=== PATIENT | female | born 1965 | race African-American/Black ===

== ENCOUNTER 2018-04-21 15:44 | Outpatient (CLI) | payer OTHER | END 2018-04-21 15:45 | disposition home or self-care (01) | LOC: BICMAMMO 15:44 | PROVIDERS: ATTEND Family Medicine | DX: Z12.31 Encounter for screening mammogram for malignant neoplasm of breast (principal); Z80.3 Family history of malignant neoplasm of breast | CPT/HCPCS: 77063; 77067 ==

== ENCOUNTER 2019-08-22 19:30 | Outpatient (CLI) | payer OTHER | END 2019-08-22 19:31 | disposition home or self-care (01) | LOC: SLEEPLAB 19:30 | PROVIDERS: ATTEND Family Medicine | DX: G47.33 Obstructive sleep apnea (adult) (pediatric) (principal); R06.83 Snoring; G47.00 Insomnia, unspecified; G47.10 Hypersomnia, unspecified; R46.0 Very low level of personal hygiene | CPT/HCPCS: 95810 ==

== ENCOUNTER 2020-02-21 10:39 | Outpatient (CLI) | payer OTHER ==
--- NOTE | 2020-02-21 11:29 | MMO ---
Bilateral MAMMO Bilat Screen [facility]. CLINICAL HISTORY: Patient is 54 years old and is seen for screening. The patient has no family history of breast cancer. The patient has no personal history of cancer. VIEWS: The views performed were: bilateral craniocaudal with tomosynthesis and bilateral mediolateral oblique with tomosynthesis. FILMS COMPARED: The present examination has been compared to prior imaging studies performed at [facility] on 02/13/2017 and 04/21/2018, and at [facility] on 11/11/2011 and 08/23/2014. This study has been interpreted with the assistance of computer-aided detection. MAMMOGRAM FINDINGS: There are scattered fibroglandular densities. There are nodules seen in both breasts. This has increased in size from the prior exam. Overall benign features. IMPRESSION: NODULES IN BOTH BREASTS REQUIRE ADDITIONAL EVALUATION. AN ULTRASOUND EXAM IS RECOMMENDED IF NEEDED. ADDITIONAL IMAGING. THE RESULTS OF THIS EXAM WERE SENT TO THE PATIENT. ACR BI-RADS Category 0 - Incomplete: Need additional imaging evaluation. [facility] [place] will notify the patient of the need for additional imaging services. MAMMOGRAPHY NOTE: 1. A negative mammogram report should not delay a biopsy if a dominant of clinically suspicious mass is present. 2. Approximately 10% to 15% of breast cancers are not detected by mammography. 3. Adenosis and dense breasts may obscure an underlying neoplasm. Reported by: ANDERSON SAENZ MD Electonically Signed: [id number]
== END 2020-02-21 10:40 | disposition home or self-care (01) ==
LOC: BICMAMMO 10:39
PROVIDERS: ATTEND Family Medicine
DX: Z12.31 Encounter for screening mammogram for malignant neoplasm of breast (principal); N63.20 Unspecified lump in the left breast, unspecified quadrant; N63.10 Unspecified lump in the right breast, unspecified quadrant
CPT/HCPCS: 77063; 77067

== ENCOUNTER 2020-02-24 10:48 | Outpatient (CLI) | payer OTHER ==
--- NOTE | 2020-02-24 13:06 | MMO ---
Bilateral MAMMO Bilat Diag [facility]. CLINICAL HISTORY: Patient is 54 years old and is seen for additional evaluation requested from prior study. The patient has no family history of breast cancer. The patient has no personal history of cancer. VIEWS: The views performed were: bilateral craniocaudal spot compression with tomosynthesis; bilateral mediolateral oblique spot compression with tomosynthesis; and bilateral mediolateral with tomosynthesis. FILMS COMPARED: The present examination has been compared to prior imaging studies performed at [facility] on 04/21/2018, 02/21/2020 and 02/24/2020. This study has been interpreted with the assistance of computer-aided detection. MAMMOGRAM FINDINGS: There are scattered fibroglandular densities. The cluster of nodular densities on the right laterally persist and appear to represent benign nodes on mammography and focused ultrasound. The density on the left persists as well. Imaging demonstrates an oval mass that likely represents a cyst or small fibroadenoma sonographically. This is a probably benign lesion for which 6 month follow up left ultrasound is advised. In the right breast, there are no suspicious masses, calcifications or areas of architectural distortion. IMPRESSION: FINDING IN THE LEFT BREAST IS PROBABLY BENIGN. FOLLOW-UP IN 6 MONTHS IS RECOMMENDED. THE RESULTS OF THIS EXAM WERE SENT TO THE PATIENT. ACR BI-RADS Category 3 - Probably benign finding - short interval follow-up suggested. [facility] will notify the patient of the need for additional imaging services. MAMMOGRAPHY NOTE: 1. A negative mammogram report should not delay a biopsy if a dominant of clinically suspicious mass is present. 2. Approximately 10% to 15% of breast cancers are not detected by mammography. 3. Adenosis and dense breasts may obscure an underlying neoplasm. Reported by: TIFF MACIEL MD Electonically Signed: [id number]
--- NOTE | 2020-02-24 14:32 | ULT ---
BILATERAL BREAST ULTRASOUND: 02/24/20 HISTORY: Bilateral breast nodules. FINDINGS: Focused ultrasound of the right breast at the 9 o'clock and 10 o'clock position demonstrate numerous hypoechoic lesions demonstrating configuration consistent with benign intramammary lymph nodes. On ma mmography, these findings also are consistent with lymph nodes. No concerning findings seen on the ri ght. On the left, centrally there is a 9 mm oval hypoechoic lesion approximately 6 cm from the nipple whic h appears to correlate in size and location with the mammographic findings. This has no internal bloo d flow or abnormal shadowing. It likely represents a cyst but increased through transmission could no t be demonstrated and thus, this could represent a small solid lesion. As a conservative measure, a f ollow-up ultrasound of the left breast is advised in six months. IMPRESSION: BIRADS 3: Probably Benign Finding Initial Short-Interval Follow-Up Suggested Initial short-term follow up (usually 6-month) examination. Findings on the right suggest numerous be nign appearing intramammary nodes. The finding on the left is probably benign and likely represents a small cyst, but a solid lesion is a possibility. Thus, a follow-up focused ultrasound of the left br east to re-evaluate this lesion is advised in six months. Results and recommendation for follow-up imaging in six months discussed with the patient at the time of interpretation.
== END 2020-02-24 10:49 | disposition home or self-care (01) ==
LOC: BICULT 10:48
PROVIDERS: ATTEND Family Medicine
DX: N63.10 Unspecified lump in the right breast, unspecified quadrant (principal); N63.20 Unspecified lump in the left breast, unspecified quadrant
CPT/HCPCS: 77066; G0279

== ENCOUNTER 2020-08-21 14:51 | Outpatient (CLI) | payer OTHER ==
--- NOTE | 2020-08-21 15:45 | ULT ---
LEFT BREAST ULTRASOUND: HISTORY: Six-month followup left breast mass. FINDINGS: Comparison is made with the exam of 02/24/2020. Sonographic evaluation of the central portion of the left breast demonstrates a 9 x 4 x 5 mm cyst sim ilar to that seen on the exam of 02/24/2020. IMPRESSION: BIRADS category 2 - benign findings. Return to annual mammographic screening. POS: OFF
== END 2020-08-21 14:52 | disposition home or self-care (01) ==
LOC: BICMAMMO 14:51
PROVIDERS: ATTEND Family Medicine
DX: N63.20 Unspecified lump in the left breast, unspecified quadrant (principal)

== ENCOUNTER 2021-08-31 14:53 | Outpatient (CLI) | payer OTHER ==
[2021-08-31 16:46] LABS: #Monocytes 0.4 10x3/uL (0.0-1.1); #Neutrophils 2.8 10x3/uL (1.5-8.4); %Basophils 0.5 % (0.0-2.0); %Eosinophils 0.3 % (0.0-6.0); %Lymphocytes 51.8 % (18.0-47.0); %Monocytes 5.5 % (0.0-10.0); %Neutrophils 41.7 % (40.0-75.0); Hemoglobin 11.9 g/dL (12.0-15.5); Mean Corpuscular HGB CONC 32.1 g/dL (32.0-36.0); Mean Corpuscular Hemoglobin 27.3 pg (27.0-33.0); Mean Corpuscular Volume 85.1 fl (81.6-98.3); Mean Platelet Volume 10.7 fl (7.4-10.4); Platelet Count 290 10x3/uL (150-450); RBC Distribution Width 13.3 % (11.5-14.5); Red Blood Cell (RBC) Count 4.36 10x6/uL (3.90-5.03); White Blood Cell (WBC) Count 6.6 10x3/uL (3.5-10.5)
[2021-08-31 17:04] LABS: Eosinophils 2 % (0-10); Lymphocytes 51 % (21-51); Monocytes 6 % (0-10); Neutrophil 37 % (42-75); Platelet Morphology Comment Appears Adequate; Reactive Lymphocytes 3 % (0-10)
[2021-09-01 14:17] LABS: SARS-CoV-2 PCR by NAA Not Detected (NotDetected)
== END 2021-08-31 14:54 | disposition home or self-care (01) ==
LOC: LABBT 14:53
PROVIDERS: ATTEND Orthopaedic Surgery Hand Surgery
DX: Z01.812 Encounter for preprocedural laboratory examination (principal); Z20.822 Contact with and (suspected) exposure to COVID-19
CPT/HCPCS: 85025; U0003; U0005

== ENCOUNTER 2021-09-04 05:41 | Day surgery (SDC) | payer OTHER ==
[2021-08-31 15:05] VITALS: BMI 31.0
[2021-09-04] MEDS ORDERED: ceFAZolin 2 GM/DEX 5% 100 ML BAG ONE (05:57)
[2021-09-04] MEDS ORDERED: Fentanyl 100 MCG/2 ML VIAL ONE (06:16)
[2021-09-04] MEDS ORDERED: Midazolam HCl 2 mg/2 ml Vial ONE (06:16)
[2021-09-04] MEDS ORDERED: Betamet Acet/Betamet Na Ph 30 MG/5 ML VIAL ONE (06:44)
[2021-09-04] MEDS ORDERED: Bacitracin Zinc Ointment 30 gm TUBE ONE (06:44)
[2021-09-04] MEDS ORDERED: Bupivacaine PF 0.5% 30 ML VIAL ONE (06:44)
[2021-09-04] MEDS ORDERED: Lidocaine 2% Jelly 5 ML TUBE ONE (06:57)
[2021-09-04] MEDS ORDERED: Ondansetron PF 4 MG/2 ML Vial ONE (07:12)
[2021-09-04] MEDS ORDERED: Lidocaine 1% PF 5 ML VIAL ONE (07:12)
[2021-09-04] MEDS ORDERED: ePHEDrine 50 MG/ML VIAL ONE (07:12)
[2021-09-04] MEDS ORDERED: Dexamethasone 20 MG/5 ML VIAL ONE (07:12)
[2021-09-04] MEDS ORDERED: PROPOFOL 200 MG/20 ML VIAL ONE (07:12)
[2021-09-04] MEDS ORDERED: Phenylephrine 10 MG/ML VIAL ONE (07:12)
[2021-09-04] MEDS ORDERED: Ketorolac Tromethamine 30 MG/ML VIAL ONE (07:12)
== END 2021-09-04 09:50 | disposition home or self-care (01) ==
LOC: SDC 05:41
PROVIDERS: ATTEND Orthopaedic Surgery Hand Surgery
PROC: 01N50ZZ Release Median Nerve, Open Approach (ICD-10-PCS; principal; 2021-09-04)
PROC: 3E0U33Z Introduction of Anti-inflammatory into Joints, Percutaneous Approach (ICD-10-PCS; principal; 2021-09-04)
DX: G56.02 Carpal tunnel syndrome, left upper limb (principal); M65.311 Trigger thumb, right thumb; M18.0 Bilateral primary osteoarthritis of first carpometacarpal joints; M19.041 Primary osteoarthritis, right hand; M19.042 Primary osteoarthritis, left hand; J30.9 Allergic rhinitis, unspecified; G47.00 Insomnia, unspecified; G43.909 Migraine, unspecified, not intractable, without status migrainosus; Z79.899 Other long term (current) drug therapy; Z91.040 Latex allergy status; Z91.018 Allergy to other foods; Z98.890 Other specified postprocedural states
CPT/HCPCS: J0702; J1100; J1885; J2250; J2370; J2405; J2704; J3010; J3490; S0020

== ENCOUNTER 2022-09-10 08:52 | Day surgery (SDC) | payer OTHER ==
[2022-09-05 12:55] VITALS: BMI 31.0
[2022-09-10] MEDS ORDERED: Bacitracin Zinc Ointment 30 gm TUBE ONE (09:53)
[2022-09-10] MEDS ORDERED: Bupivacaine PF 0.5% 30 ML VIAL ONE (09:53)
[2022-09-10] MEDS ORDERED: Sodium Chloride 0.9% 100 ML ONE (10:27)
[2022-09-10] MEDS ORDERED: CEFAZOLIN 2 GM VIAL ONE (10:27)
[2022-09-10] MEDS ORDERED: HYDROmorphone 2 MG/ML VIAL ONE (10:30)
[2022-09-10] MEDS ORDERED: Ondansetron PF 4 MG/2 ML Vial ONE (10:48)
[2022-09-10] MEDS ORDERED: PROPOFOL 200 MG/20 ML VIAL ONE (10:48)
[2022-09-10] MEDS ORDERED: Dexamethasone 20 MG/5 ML VIAL ONE (10:48)
[2022-09-10] MEDS ORDERED: Lidocaine 1% PF 5 ML VIAL ONE (10:48)
[2022-09-10] MEDS ORDERED: Ketorolac Tromethamine 30 MG/ML VIAL ONE ×2 (10:48→11:42)
[2022-09-10] MEDS ORDERED: PHENYLEPHRINE-NS 100 MCG/ML 10 ML SYRINGE ONE (10:48)
== END 2022-09-10 13:10 | disposition home or self-care (01) ==
LOC: SDC 08:52
PROVIDERS: ATTEND Orthopaedic Surgery Hand Surgery
PROC: 0LN80ZZ Release Left Hand Tendon, Open Approach (ICD-10-PCS; principal; 2022-09-10)
DX: M65.312 Trigger thumb, left thumb (principal); M65.352 Trigger finger, left little finger; Z79.899 Other long term (current) drug therapy; Z91.040 Latex allergy status
CPT/HCPCS: J1100; J1170; J1885; J2405; J2704; J3490; S0020

== ENCOUNTER 2022-11-29 18:53 | Emergency (ER) | payer OTHER ==
[2022-11-29] MEDS ORDERED: Aspirin 325 MG TAB ONE (19:17)
[2022-11-29] MEDS ORDERED: Nitroglycerin 2% Ointment 1 INCH/1 GM Packet ONE (19:17)
[2022-11-29 19:30] LABS: #Basophils 0.1 thou/uL (0.0-0.2); #Eosinphils 0.1 thou/uL (0.0-0.7); #Lymphocytes 2.9 thou/uL (1.20-3.40); #Monocytes 0.4 thou/uL (0.11-0.59); #Neutrophils 3.5 thou/uL (1.40-6.50); %Basophils 0.7 % (0.0-1.0); %Eosinophils 1.7 % (0.0-10.0); %Lymphocytes 41.2 % (21.0-51.0); %Monocytes 6.2 % (0.0-10.0); %Neutrophils 50.1 % (42.0-75.0); Hemoglobin 14.1 g/dL (12.0-16.0); Mean Corpuscular HGB CONC 33.5 g/dL (32.0-36.0); Mean Corpuscular Volume 86.7 fl (78.0-98.0); Mean Platelet Volume 8.7 fL (7.4-10.4); Platelet Count 242 10x3/uL (130-400); RBC Distribution Width 12.8 % (11.5-14.5); Red Blood Cell (RBC) Count 4.86 mill/uL (4.20-5.40)
[2022-11-29] MEDS ORDERED: Ketorolac Tromethamine 30 MG/ML VIAL ONE (19:34)
[2022-11-29 19:50] LABS: ALT (SGPT) 17 U/L (8-55); AST (SGOT) 20 U/L (5-34); Albumin 4.6 g/dL (3.5-5.0); Alkaline Phosphatase 71 U/L (40-110); Anion Gap 13 mmol/L (10-20); BUN (Urea Nitrogen) 11 mg/dL (9.8-20.1); Bilirubin, Total 0.4 mg/dL (0.2-1.2); Calc. Creatinine Clearance 0 mL/min (70-130); Calcium 9.7 mg/dL (7.8-10.44); Carbon Dioxide 23 mmol/L (22-29); Chloride 108 mmol/L (98-107); Estimated GFR 93; Globulin 4.1 g/dL (2.4-3.5); Glucose 84 mg/dL (70-105); Lipase 23 U/L (8-78); Potassium 3.4 mmol/L (3.5-5.1); Protein, Total 8.7 g/dL (6.0-8.3); Sodium 141 mmol/L (136-145)
== END 2022-11-29 20:27 | disposition home or self-care (01) ==
LOC: ERS 18:53
DX: R07.89 Other chest pain (principal)
CPT/HCPCS: 71045; 80053; 83690; 83880; 84484; 85025; 93005; 96374; J1885

== ENCOUNTER 2023-04-09 11:33 | Outpatient (CLI) | payer OTHER | END 2023-04-09 11:34 | disposition home or self-care (01) | LOC: SCSMRI 11:33 | PROVIDERS: ATTEND Nurse Practitioner | DX: M51.16 Intervertebral disc disorders with radiculopathy, lumbar region (principal); M48.061 Spinal stenosis, lumbar region without neurogenic claudication; M89.38 Hypertrophy of bone, other site | CPT/HCPCS: 72158 ==

== ENCOUNTER 2025-07-07 13:20 | Outpatient (CLI) | payer OTHER | END 2025-07-07 13:21 | disposition home or self-care (01) | LOC: BICMRI 13:20 | PROVIDERS: ATTEND Nurse Practitioner Family | DX: M25.551 Pain in right hip (principal); G89.29 Other chronic pain; M15.9 Polyosteoarthritis, unspecified; S73.101A Unspecified sprain of right hip, initial encounter; G89.18 Other acute postprocedural pain; Z98.1 Arthrodesis status ==

== ENCOUNTER 2025-07-14 15:04 | Outpatient (CLI) | payer OTHER | END 2025-07-14 15:05 | disposition home or self-care (01) | LOC: BICMAMMO 15:04 | PROVIDERS: ATTEND Nurse Practitioner Family | DX: Z12.31 Encounter for screening mammogram for malignant neoplasm of breast (principal) | CPT/HCPCS: 77063; 77067 ==